=== PATIENT | female | born 1950 | race Two or more races ===

== ENCOUNTER 2018-08-02 07:00 | Day surgery (SDC) | payer OTHER | END 2018-08-02 15:55 | disposition home or self-care (01) | LOC: AMB-ENDOS 07:00 | DX: K64.1 Second degree hemorrhoids (principal) ==

== ENCOUNTER 2019-07-18 11:17 | Day surgery (SDC) | payer OTHER | END 2019-07-18 15:45 | disposition home or self-care (01) | LOC: AMB-ENDOS 11:17 → ADM 13:45 → AMB-ENDOS 15:45 | PROVIDERS: ATTEND Colon & Rectal Surgery | DX: K62.89 Other specified diseases of anus and rectum (principal); K64.1 Second degree hemorrhoids ==

== ENCOUNTER → 2020-01-28 | Outpatient (CLI) | payer OTHER | END | disposition home or self-care (01) | LOC: OFIC 805 14:15 | PROVIDERS: ATTEND Otolaryngology | DX: R09.81 Nasal congestion (principal); J32.8 Other chronic sinusitis; J34.3 Hypertrophy of nasal turbinates ==

== ENCOUNTER 2020-05-03 16:00 | Outpatient (CLI) | payer OTHER | END 2020-05-03 16:52 | disposition home or self-care (01) | LOC: OFIC 805 16:00 | PROVIDERS: ATTEND Otolaryngology Otology & Neurotology | DX: J34.3 Hypertrophy of nasal turbinates (principal); J32.8 Other chronic sinusitis; R09.81 Nasal congestion ==

== ENCOUNTER 2020-09-08 13:05 | Day surgery (SDC) | payer OTHER | END 2020-09-08 15:40 | disposition home or self-care (01) | LOC: AMB-ENDOS 13:05 | PROVIDERS: ATTEND Colon & Rectal Surgery | DX: K62.89 Other specified diseases of anus and rectum (principal); K64.0 First degree hemorrhoids; Z20.822 Contact with and (suspected) exposure to COVID-19 ==